=== PATIENT | female | born 1990 | race Caucasian/White ===

== ENCOUNTER 2018-06-24 17:51 | Emergency (ER) | payer OTHER ==
[2018-06-24 17:55] VITALS: BP 129/83
[2018-06-24] MEDS ORDERED: IV NORMAL SALINE 1,000ML 1,000 ML IV ONE (18:30)
[2018-06-24 19:15] LABS: BASO # 0.1 x10^3/uL (0.0-0.2); BASO % 1 % (0-3); EOS # 0.3 x10^3/uL (0.0-0.7); EOS % 3 % (0-3); HEMATOCRIT 38.5 % (36.0-47.0); HEMOGLOBIN 13.3 g/dL (12.0-15.5); LYMPH # 2.2 x10^3/uL (1.0-4.8); LYMPH % 22 % (24-48); MEAN CORPUSCULAR HEMOGLOBIN 31 pg (25-35); MEAN CORPUSCULAR HGB CONC 34 g/dL (31-37); MEAN CORPUSCULAR VOLUME 90 fL (79-100); MONO # 0.6 x10^3/uL (0.0-1.1); MONO % 6 % (0-9); NEUT # 6.9 x10^3uL (1.8-7.7); NEUT % 68 % (31-73); PLATELET COUNT 393 x10^3/uL (140-400); RED BLOOD COUNT 4.29 x10^6/uL (3.50-5.40); RED CELL DISTRIBUTION WIDTH 12.8 % (11.5-14.5); WHITE BLOOD COUNT 10.1 x10^3/uL (4.0-11.0)
[2018-06-24 19:22] LABS: BILIRUBIN,URINE NEG (NEG); CLARITY,URINE CLEAR; COLOR,URINE YELLOW; GLUCOSE,URINE NEG (NEG)
[2018-06-24 19:23] LABS: BACTERIA,URINE 0 /HPF (0-FEW); NITRITE,URINE NEG (NEG); RBC,URINE 0 /HPF (0-2); SQUAMOUS EPITHELIAL CELL,UR FEW /LPF; UROBILINOGEN,URINE 0.2 mg/dL (0.2 mg/dL); WBC,URINE 0 /HPF (0-4)
[2018-06-24 19:28] LABS: ALBUMIN 3.8 g/dL (3.4-5.0); ALBUMIN/GLOBULIN RATIO 1.2 (1.0-1.7); CALCIUM 8.9 mg/dL (8.5-10.1); CREATININE 0.8 mg/dL (0.6-1.0); GFR 84.8; POTASSIUM 3.5 mmol/L (3.5-5.1); TOTAL BILIRUBIN 0.3 mg/dL (0.2-1.0); TOTAL PROTEIN 7.1 g/dL (6.4-8.2)
--- NOTE | 2018-06-24 20:46 | RAD ---
OB ultrasound less than 14 weeks 06/24/2018 CLINICAL HISTORY: First trimester with pelvic pain and vaginal bleeding. TECHNIQUE: Using the distended urinary bladder as a sonographic window, a real-time ultrasound examination of the pelvis was performed. Multiple images were obtained. FINDINGS: A gestational sac is seen within the uterus. Within this gestational sac an embryonic pole is seen. The CRL of this embryonic pole measures 2.48 cm. This corresponds to an estimated gestational age by ultrasound of 9 weeks 2 days plus or minus a standard deviation of 6 days. Embryonic cardiac activity is seen. The heart rate is 187 bpm period the amniotic fluid volume within the gestational sac is within normal limits. The placenta is not yet developed. The maternal cervix is closed. It measures 3.8 cm in length. No focal abnormality of the uterus is seen. Both ovaries are within normal limits in size. The right ovary measures 3.6 x 3.6 x 2.8 cm in size. A 2 cm corpus luteum is seen within the right ovary. The left ovary measures 2.1 x 1.8 x 1.4 cm in size. No adnexal mass is seen. No free fluid is noted. IMPRESSION: Single living IUP with an estimated gestational age by ultrasound of 9 weeks 2 days plus or minus a standard deviation of 6 days. The estimated date of delivery by ultrasound is 01/25/2019. Electronically signed by: Kyle Oro MD (06/24/2018 8:42 PM) [facility]
--- NOTE | 2018-06-24 21:59 | PHYS DOC ---
Past History Past Medical History: No Pertinent History Past Surgical History: Other Additional Past Surgical Histo: left wrist ORIF Smoking: Non-smoker Alcohol Use: None Drug Use: None Adult General Chief Complaint Chief Complaint: VAGINAL BLEEDING HPI HPI 27-year-old female presents at approximately 9 weeks as with report of vaginal bleeding which became worse today. Patient reports she has had some intermittent spotting throughout the 9 weeks. Patient reports she has not yet been able to follow with a OB but has an upcoming appointment. Patient reports she called the OBs office who instructed her to present to the ER for further evaluation. Denies any lightheadedness or dizziness. She reports she was seen at outside facility for output dictations and had reported intermittent spotting all . She reports she did have an ultrasound at that time which showed a yolk sac. Patient also reports she thinks she is Rh+. Denies fever or chills. Review of Systems Review of Systems Constitutional: Denies fever or chills [] Eyes: Denies change in visual acuity, redness, or eye pain [] HENT: Denies nasal congestion or sore throat [] Respiratory: Denies cough or shortness of breath [] Cardiovascular: Denies chest pain or palpitations GI: Denies abdominal pain, nausea, vomiting, or diarrhea [] : Denies dysuria or hematuria [] [employer]ODDY M[employer] WORKER: Reports vaginal bleeding, Reports Musculoskeletal: Denies back pain or joint pain [] Integument: Denies rash or skin lesions [] Neurologic: Denies headache, focal weakness or sensory changes [] Complete systems were reviewed and found to be within normal limits, except as documented in this note. Current Medications Current Medications Current Medications Medications (Trade) Dose Ordered Sig/Thom Start Time Stop Time Status Last Admin Dose Admin Sodium Chloride 1,000 ml @ 1,000 mls/hr 1X ONCE 06/24/18 18:30 06/24/18 19:29 DC 06/24/18 19:13 1,000 MLS/HR Allergies Allergies Allergies Coded Allergies Type Severity Reaction Last Updated Verified No Known Drug Allergies 06/24/18 No Physical Exam Physical Exam Constitutional: Well developed, well nourished, no acute distress, non-toxic appearance. [] HENT: Normocephalic, atraumatic, oropharynx moist Eyes: Conjunctiva normal, no discharge. [] Neck: Normal range of motion, no tenderness, supple, no meningeal signs Lungs & Thorax: No respiratory distress Abdomen: Soft, no tenderness, no masses, no pulsatile masses. [] Skin: Warm, dry, no erythema, no rash. [] Back: No tenderness, no CVA tenderness. [] SHODDY MILL WORKER: Ethyl Blender: Letitia RN, No os tenderness. Moderate blood noted in vault which appears older, no adenexal tenderness, Gravid uterus noted Extremities: No tenderness, ROM intact, no edema. [] Neurologic: Alert and oriented X 3, normal motor function, normal sensory function, no focal deficits noted. [] Psychologic: Affect normal, judgement normal, mood normal. [] Current Patient Data Vital Signs Vital Signs Date Time Temp Pulse Resp B/P (MAP) Pulse Ox O2 Delivery O2 Flow Rate FiO2 06/24/18 17:55 98.9 89 18 100 Room Air Lab Results Laboratory Tests Test 06/24/18 18:44 White Blood Count 10.1 x10^3/uL (4.0-11.0) Red Blood Count 4.29 x10^6/uL (3.50-5.40) Hemoglobin 13.3 g/dL (12.0-15.5) Hematocrit 38.5 % (36.0-47.0) Mean Corpuscular Volume 90 fL (79-100) Mean Corpuscular Hemoglobin 31 pg (25-35) Mean Corpuscular Hemoglobin Concent 34 g/dL (31-37) Red Cell Distribution Width 12.8 % (11.5-14.5) Platelet Count 393 x10^3/uL (140-400) Neutrophils (%) (Auto) 68 % (31-73) Lymphocytes (%) (Auto) 22 % (24-48) L Monocytes (%) (Auto) 6 % (0-9) Eosinophils (%) (Auto) 3 % (0-3) Basophils (%) (Auto) 1 % (0-3) Neutrophils # (Auto) 6.9 x10^3uL (1.8-7.7) Lymphocytes # (Auto) 2.2 x10^3/uL (1.0-4.8) Monocytes # (Auto) 0.6 x10^3/uL (0.0-1.1) Eosinophils # (Auto) 0.3 x10^3/uL (0.0-0.7) Basophils # (Auto) 0.1 x10^3/uL (0.0-0.2) Urine Collection Type Unknown Urine Color Yellow Urine Clarity Clear Urine pH 7.0 Urine Specific [place] 1.010 Urine Protein Neg (NEG-TRACE) Urine Glucose (UA) Neg mg/dL (NEG) Urine Ketones (Stick) Neg mg/dL (NEG) Urine Blood Mod (NEG) Urine Nitrite Neg (NEG) Urine Bilirubin Neg (NEG) Urine Urobilinogen Dipstick 0.2 mg/dL (0.2 mg/dL) Urine Leukocyte Esterase Neg (NEG) Urine RBC 0 /HPF (0-2) Urine WBC 0 /HPF (0-4) Urine Squamous Epithelial Cells Few /LPF Urine Bacteria 0 /HPF (0-FEW) Maternal Serum HCG Beta Subunit 44569 mIU/mL (0-6) H Sodium Level 136 mmol/L (136-145) Potassium Level 3.5 mmol/L (3.5-5.1) Chloride Level 101 mmol/L (98-107) Carbon Dioxide Level 27 mmol/L (21-32) Anion Gap 8 (6-14) Blood Urea Nitrogen 8 mg/dL (7-20) Creatinine 0.8 mg/dL (0.6-1.0) Estimated GFR (Cockcroft-Gault) 84.8 BUN/Creatinine Ratio 10 (6-20) Glucose Level 88 mg/dL (70-99) Calcium Level 8.9 mg/dL (8.5-10.1) Magnesium Level 2.0 mg/dL (1.8-2.4) Total Bilirubin 0.3 mg/dL (0.2-1.0) Aspartate Amino Transferase (AST) 17 U/L (15-37) Alanine Aminotransferase (ALT) 31 U/L (14-59) Alkaline Phosphatase 52 U/L (46-116) Total Protein 7.1 g/dL (6.4-8.2) Albumin 3.8 g/dL (3.4-5.0) Albumin/Globulin Ratio 1.2 (1.0-1.7) Microbiology 06/24/18 Wet Prep - Final, Complete EKG EKG [] Radiology/Procedures Radiology/Procedures PROCEDURE: OB <14 WKS OB ultrasound less than 14 weeks 06/24/2018 CLINICAL HISTORY: First trimester with pelvic pain and vaginal bleeding. TECHNIQUE: Using the distended urinary bladder as a sonographic window, a real-time ultrasound examination of the pelvis was performed. Multiple images were obtained. FINDINGS: A gestational sac is seen within the uterus. Within this gestational sac an embryonic pole is seen. The CRL of this embryonic pole measures 2.48 cm. This corresponds to an estimated gestational age by ultrasound of 9 weeks 2 days plus or minus a standard deviation of 6 days. Embryonic cardiac activity is seen. The heart rate is 187 bpm period the amniotic fluid volume within the gestational sac is within normal limits. The placenta is not yet developed. The maternal cervix is closed. It measures 3.8 cm in length. No focal abnormality of the uterus is seen. Both ovaries are within normal limits in size. The right ovary measures 3.6 x 3.6 x 2.8 cm in size. A 2 cm corpus luteum is seen within the right ovary. The left ovary measures 2.1 x 1.8 x 1.4 cm in size. No adnexal mass is seen. No free fluid is noted. IMPRESSION: Single living IUP with an estimated gestational age by ultrasound of 9 weeks 2 days plus or minus a standard deviation of 6 days. The estimated date of delivery by ultrasound is 01/25/2019. Electronically signed by: Kyle Kraus MD (06/24/2018 8:42 PM) [facility] DICTATED AND SIGNED BY: KYLE KRAUS MD DATE: 06/24/182036 Course & Med Decision Making Course & Med Decision Making Pertinent Labs and Imaging studies reviewed. (See chart for details) Pertinent patient presents with report of vaginal bleeding which was worse today but has been intermittent throughout . Labs obtained and posted to chart. H&H stable. Beta-HCG appears appropriate. Rh+. Ultrasound with intrauterine consistent with dates.Patient stable for discharge with outpatient follow-up with PCP/OB. Discussed findings and plan with patient and family, who acknowledge understanding and agreement. Dragon Disclaimer Dragon Disclaimer This electronic medical record was generated, in whole or in part, using a voice recognition dictation system. Departure Departure: Impression: Primary Impression: Threatened miscarriage Disposition: 01 HOME, SELF-CARE Condition: STABLE Referrals: RICA ALBERTO DO (PCP) Patient Instructions: Threatened Miscarriage, [id number], Vaginal Bleeding During , First Trimester HOLLIE SOLOMON DO Jun 24, 2018 21:59
[2018-06-27 15:11] LABS: CHLAMYDIA PROBE Negative (Negative)
== END 2018-06-24 22:18 | disposition home or self-care (01) ==
LOC: ER 17:51
DX: O20.0 Threatened abortion (principal); Z3A.09 9 weeks gestation of pregnancy
CPT/HCPCS: 36415; 76801; 80053; 81001; 83735; 84702; 85025; 86901; 87491; 87591; 99285; Q0111; J7030